=== PATIENT | male | born 1960 | race Caucasian/White ===

== ENCOUNTER 2022-03-03 16:07 | Emergency (ER) | payer OTHER ==
[~2022-03-03] VITALS: Ht 177.8 cm; Wt 85.3 kg
[2022-03-03] MEDS ORDERED: LOSARTAN POTASS50 MG PO (16:21)
[2022-03-03] MEDS ORDERED: ASPIRIN81 MG PO (16:21)
== END 2022-03-03 17:37 | disposition home or self-care (01) ==
LOC: ED 16:07
DX: U07.1 COVID-19 (principal); I10 Essential (primary) hypertension; Z79.899 Other long term (current) drug therapy; Z79.82 Long term (current) use of aspirin; Z23 Encounter for immunization
CPT/HCPCS: 96374; 99283-25